=== PATIENT | female | born 1955 | race Two or more races ===

== ENCOUNTER 2019-08-08 12:34 | Outpatient (CLI) | payer OTHER | END 2019-08-08 12:38 | disposition home or self-care (01) | LOC: LAB 12:34 | DX: K92.1 Melena (principal) ==

== ENCOUNTER 2019-08-26 07:45 | Day surgery (SDC) | payer OTHER | END 2019-08-26 12:50 | disposition home or self-care (01) | LOC: AMB-ENDOS 07:45 | DX: D12.2 Benign neoplasm of ascending colon (principal); K64.1 Second degree hemorrhoids ==